=== PATIENT | male | born 1950 | race Hispanic/Latino ===

== ENCOUNTER 2017-01-13 06:18 | Outpatient (CLI) | payer MEDICARE ==
--- NOTE | 2017-01-14 09:13 | PET Report ---
PET SB TO MT INITIAL: HISTORY: Single pulmonary nodule. TECHNIQUE: 14.4 millicuries F-18 FDG was administered intravenously. Noncontrast CT images and PET images were obtained from the skull base to the proximal thighs. Fused images were reviewed on a workstation. The patient's blood glucose level measured 108. COMPARISON: CT angio chest dated 10/20/16. FINDINGS: BRAIN: physiologic FDG uptake in the imaged brain. NECK: physiologic FDG uptake. MEDIASTINUM: physiologic FDG uptake. LUNGS: There are moderate to severe emphysematous changes throughout both lungs. A 3.1 x 2.5 cm spiculated mass is identified in the left upper lobe with Max SUV measuring 12.7. On the previous CTA chest this mass measured 2.9 x 2.4 cm. The right upper lobe pneumonia has essentially resolved since the previous exam. There is minor linear scarring remaining in the right upper lobe but no evidence for mass. SUV values in the right upper lobe range from 2.2-3.0. This appears post inflammatory in nature. PLEURA/PERICARDIUM: physiologic FDG uptake. THORACIC LYMPH NODES: Borderline precarinal lymph nodes measure up to 2.0 x 1.9 cm but have decreased in size since 10/20/16. Max SUV measures 2.2. No convincing hypermetabolic thoracic lymph nodes. HEPATOBILIARY: physiologic FDG uptake. Mean liver SUV measures 4.3. PANCREAS: physiologic FDG uptake. SPLEEN: physiologic FDG uptake. ADRENAL GLANDS: physiologic FDG uptake. KIDNEYS/RENAL COLLECTING SYSTEMS: physiologic FDG uptake. BOWEL/MESENTERY: physiologic FDG uptake. PELVIC VISCERA: physiologic FDG uptake. ABDOMINAL/PELVIC LYMPH NODES: physiologic FDG uptake. MUSCULOSKELETAL: physiologic FDG uptake. IMPRESSION: 3.1 x 2.5 cm hypermetabolic left upper lobe mass consistent with primary lung cancer. No metastatic lesions are detected on PET imaging.
== END 2017-01-13 06:19 | disposition home or self-care (01) ==
LOC: PET 06:18
PROVIDERS: ATTEND Internal Medicine Critical Care Medicine
DX: R91.1 Solitary pulmonary nodule (principal); I10 Essential (primary) hypertension; I25.10 Atherosclerotic heart disease of native coronary artery without angina pectoris; I48.91 Unspecified atrial fibrillation
CPT/HCPCS: 78815; 82962; A9552